=== PATIENT | female | born 1980 | race Caucasian/White ===

== ENCOUNTER 2020-06-06 09:01 | Outpatient (CLI) | payer BC, SELFPAY ==
--- NOTE | ~2020-06-06 | MM_ITS ---
EXAMINATION: MM screening [facility] BI w tank HISTORY: Screening mammogram TECHNIQUE: Craniocaudal and mediolateral oblique 3-D tomosynthesis images were obtained and synthetic 2-D images were generated. CAD analysis was submitted and interpreted. COMPARISON: 04/27/2019 BREAST PARENCHYMAL COMPOSITION: The breasts are heterogeneously dense, which may obscure small masses . FINDINGS: RIGHT BREAST: There is no evidence of suspicious mass, calcification, or architectural distortion to suggest malignancy. There has been no significant interval change. LEFT BREAST: A possible mass is present in the posterior third of the lower inner breast best appreci ated 9.5 cm from the nipple on craniocaudal tomosynthesis image 16/71. IMPRESSION: 1. Possible left breast mass. 2. Additional mammographic views and possible breast ultrasound are recommended. BI-RADS Category 0: Incomplete: Needs additional imaging evaluation. Reviewed, dictated and finalized at location A. IMPRESSION: 1. Possible left breast mass. 2. Additional mammographic views and possible breast ultrasound are recommended . BI-RADS Category 0: Incomplete: Needs additional imaging evaluation.
== END 2020-06-06 09:02 | disposition home or self-care (01) ==
LOC: ANHIMG 09:05
PROVIDERS: PCP Family Medicine; Visit Provider Obstetrics & Gynecology
DX: Z12.31 Encounter for screening mammogram for malignant neoplasm of breast (principal); R92.8 Other abnormal and inconclusive findings on diagnostic imaging of breast
CPT/HCPCS: 77063; 77067

== ENCOUNTER 2020-10-04 12:12 | Outpatient (CLI) | payer BC, SELFPAY ==
--- NOTE | ~2020-10-04 | MM_ITS ---
Corrected Report Added US breast LT limited to the examinations. -BJO - EXAMINATION: MM diagnostic [facility] LT w tank, US breast LT limited HISTORY: Possible left breast mass on screening mammogram TECHNIQUE: Additional 3-D tomosynthesis images of the left breast were performed and synthetic 2-D images were generated. CAD analysis was submitted and interpreted. High resolution limited left breast ultrasound was performed. COMPARISON: 06/06/2020, 04/27/2019 FINDINGS: MAMMOGRAPHIC FINDINGS: No persistent left breast mass is identified with spot compression. There is no suspicious calcification or architectural distortion. ULTRASOUND: There is no evidence of focal abnormal solid or cystic lesion in the vicinity of the mammographic finding in question. IMPRESSION: 1. No mammographic or sonographic evidence of malignancy. 2. Recommend routine screening mammography in one year. BI-RADS Category 1: Negative Reviewed, dictated and finalized at location A. EXAMINER MTDD
== END 2020-10-04 12:13 | disposition home or self-care (01) ==
LOC: ANHIMG 12:16
PROVIDERS: PCP Family Medicine; Visit Provider Obstetrics & Gynecology
DX: R92.8 Other abnormal and inconclusive findings on diagnostic imaging of breast (principal)
CPT/HCPCS: 76642; 77061; 77065; G0279

== ENCOUNTER 2021-09-16 08:11 | Outpatient (CLI) | payer BC, SELFPAY ==
--- NOTE | ~2021-09-16 | MM_ITS ---
EXAMINATION: MM screening [facility] BI w tank HISTORY: Screening TECHNIQUE: Craniocaudal and mediolateral oblique 3-D tomosynthesis images were obtained and synthetic 2-D images were generated. CAD analysis was submitted and interpreted. COMPARISON: Comparison to multiple prior studies sequentially, with oldest reviewed study dated 04/27. BREAST PARENCHYMAL COMPOSITION: The breasts are heterogeneously dense, which may obscure small masses . FINDINGS: There is no evidence of suspicious mass, calcification, or architectural distortion to sugg est malignancy in either breast. There has been no suspicious interval change. IMPRESSION: 1. No mammographic evidence of malignancy. 2. Recommend routine screening mammography in one year. BI-RADS Category 1: Negative Reviewed, dictated and finalized at location A. NESS OFFICE TECHNICIAN
== END 2021-09-16 08:12 | disposition home or self-care (01) ==
LOC: ANHIMG 08:15
PROVIDERS: PCP Family Medicine; Visit Provider Obstetrics & Gynecology
DX: Z12.31 Encounter for screening mammogram for malignant neoplasm of breast (principal)
CPT/HCPCS: 77063; 77067

== ENCOUNTER 2021-12-21 08:19 | Emergency (ER) | payer BC, SELFPAY ==
--- NOTE | ~2021-12-21 | CT_ITS ---
EXAMINATION: CT abdomen pelvis w con DATE: 12/21/2021 11:28 INDICATION: Lower abdominal pain. Constipation. Difficulty urinating. TECHNIQUE: Computed tomography (CT) of the abdomen and pelvis was performed with 100 CC Omnipaque 300 intravenous contrast. Automated exposure control and iterative reconstruction technique were employe d. Exam dose: 464.43 mGy-cm total exam DLP. COMPARISON: 04/10/2018 right upper quadrant abdominal ultrasound FINDINGS: Left lower lobe calcified pulmonary granuloma. No infiltrate or consolidation at the lung b ases. Normal heart size. No pericardial or pleural effusion. The liver, gallbladder, bile ducts, spleen, pancreas and pancreatic duct appear normal. Normal morphology of the adrenal glands. There is a very small cyst of each kidney. No urinary tract calculus or hydroureteronephrosis. Normal caliber of the abdominal aorta. Small shotty mesenteric and right lower quadrant lymph nodes. No intraperitoneal or retroperitoneal or pelvic mass lesion or adenopathy or ascites. There is a 3.3 cm long 2 mm wide curvilinear radiopaque density extending from the left adnexal area anteromedially into the mid lower abdomen 2.3 cm right ovarian cyst. 1.3 cm left ovarian cyst. The uterus and adnexal areas are otherwise unrem arkable. The urinary bladder is unremarkable. Prominent amount fecal material in the rectum and rectosigmoid area. No bowel obstruction or intraper itoneal free air. Small fat-containing umbilical hernia. Included skeletal structures are unremarkable. IMPRESSION: Curvilinear 2 mm wide radiopaque foreign body identified in the lower left mid abdomen Prominent amount fecal material in the rectum and rectosigmoid area Small cyst of each kidney Bilateral ovarian cysts Reviewed, dictated and finalized at Location A. Reviewed, dictated and finalized at location A. IMPRESSION: Curvilinear 2 mm wide radiopaque foreign body identified in the low er left mid abdomen Prominent amount fecal material in the rectum and rectosigmoid area Small cyst of each kidney Bilateral ovarian cysts
[2021-12-21 08:29] VITALS: BP 153/87; PULSE 99; RESP 18; TEMP 36.4; O2SAT 100
--- NOTE | 2021-12-21 09:19 | ED.ABDPAIN ---
HPI - Abdominal Pain General Chief Complaint: Abdominal Pain Stated Complaint: bowel issues Time Seen by Provider: 12/21/21 09:12 History of Present Illness HPI narrative: 41-year-old female presents to the emergency room for evaluation of lower abdominal pain and constipation for 3 days. Patient states that she has attempted multiple stool softeners without relief, and is experiencing significant amount of rectal pain. Patient denies any hemorrhoids. Patient is also complaining of urinary retention, stating the only time she can urinate is when she sits in a warm bath for 10 to 15 minutes. Patient also reports intermittent nausea. Patient denies flatulence. Patient denies any abdominal surgeries. Related Data Home Medications Medication Instructions Recorded Confirmed multivitamin 1 tablet PO DAILY 10/26/20 11/01/21 Allergies Allergy/AdvReac Type Severity Reaction Status Date / Time No Known Allergies Allergy Verified 12/21/21 09:20 fluticasone AdvReac Unknown lower body Verified 11/01/21 15:18 pain Review of Systems Review of Systems: CONSTITUTIONAL: Denies fever, chills, or sweats. EYES: Denies visual changes, redness, or discharge. ENT: Denies rhinorrhea, congestion, sore throat, or otalgia. CARDIOVASCULAR: Denies chest pain, palpitations, or edema. RESPIRATORY: Denies cough or dyspnea. GASTROINTESTINAL: Reports lower abdominal pain, nausea, rectal pain GENITOURINARY: Reports urinary retention. SKIN: Denies rash or itching. MUSCULOSKELETAL: Denies back pain, joint pain, or myalgia. NEUROLOGIC: Denies headache, numbness, dizziness, or weakness. PSYCHIATRIC: Denies anxiety or depression. [facility] Past Medical History Medical History Abnormal glandular Papanicolaou smear of cervix Chronic pain of right knee Family History Family History Mother Diabetes mellitus Other Family history of arthritis Social History Social History Smoking status: Former smoker Tobacco type: cigarettes Smoking end date: 11/08/20 Alcohol intake: current Exam Narrative: GENERAL: Well-appearing, well-nourished, and in no acute distress. HEAD: Normocephalic, atraumatic. EYES: PERRLA and EOMI. CHEST: Clear to auscultation. No respiratory distress. No wheezes rales or rhonchi HEART: Regular rate and rhythm. No murmur heard. Normal peripheral pulses. ABDOMEN: Soft, lower abdominal tenderness, nondistended, hypo-active bowel sounds. EXTREMITIES: Normal range of motion. No edema. SKIN: Warm, dry, no rash. NEURO: No focal deficits. Alert and oriented x3. PSYCH: Normal mood and affect. Course Vital Signs Vital signs: Vital Signs Temperature 36.4 C 12/21/21 08:29 Pulse Rate 99 12/21/21 08:29 Respiratory Rate 18 12/21/21 08:29 Blood Pressure 153/87 H 12/21/21 08:29 Pulse Oximetry 100 12/21/21 08:29 Temperature 36.4 C 12/21/21 08:29 Pulse Rate 71 12/21/21 11:09 Respiratory Rate 18 12/21/21 11:09 Blood Pressure 128/68 12/21/21 11:09 Pulse Oximetry 100 12/21/21 11:09 MDM - Abdominal Pain MDM Narrative Medical decision making narrative: 41-year-old female presents the emergency room with complaints of generalized abdominal pain, and constipation. Patient states that she recently started taking a new [id number] supplement, has been experiencing constipation for 3 days. CBC and CMP were unremarkable. CT scan shows large amount of retained stool, as well as a foreign body in the left lower abdomen. Patient states that she lost an IUD approximately 4 to 5 years ago, and this is likely where migrated to. Encourage patient to get an [id number] fleets enema. Differential Diagnosis Differential diagnosis: Likely abdominal pain Medical Records Attestation: I reviewed the patient's medical records. Lab Data
[2021-12-21] MEDS: SODIUM CHLORIDE 0.9% IV 1,000 ML 999 ML IV CONT (09:56)
[2021-12-21 10:15] LABS: Basophils Absolute Auto 0.1 K/mm3 (0.0-0.1); Basophils Percent Auto 0.9 % (0.2-1.2); Eosinophils Percent Auto 0.4 % (0-4.4); Hematocrit 39.2 % (37.0-47.0); Hemoglobin 12.8 g/dL (12.0-15.0); Immature Granulocyte Absolute 0.03 K/mm3 (0.00-0.031); Immature Granulocyte Percent A 0.4 % (0-0.5); Lymphocytes Absolute Auto 1.31 K/mm3 (0.9-3.2); Lymphocytes Percent Auto 16.2 % (18.3-44.2); Mean Corpuscular HGB Conc 32.7 g/dl (32-36); Mean Corpuscular Hemoglobin 29.6 pg (26-34); Mean Corpuscular Volume 90.7 fl (80-100); Mean Platelet Volume 10.3 fl (7.4-10.4); Monocytes Absolute Auto 0.4 K/mm3 (0.1-0.6); Monocytes Percent Auto 4.6 % (2.6-8.5); Neutrophils Absolute Auto 6.3 K/mm3 (1.3-6.7); Neutrophils Percent Auto 77.5 % (45.5-73.1); Platelet Count Result 265 k/mm3 (150-375); Red Blood Count 4.32 M/mm3 (4.2-5.4); Red Cell Distribution Width 11.8 % (11.5-14.5); White Blood Count 8.1 K/mm3 (4.5-10.0)
[2021-12-21 10:27] LABS: Alanine Aminotransferase 27 U/L (6-35); Albumin Level 4.7 g/dL (3.5-5.1); Alkaline Phosphatase 89 U/L (38-126); Anion Gap 13 mmol/L (8-16); Aspartate Amino Transferase 30 U/L (14-36); Bilirubin,Total 0.8 mg/dL (0.2-1.3); Blood Urea Nitrogen 15 mg/dL (7-17); Calcium 8.6 mg/dL (8.4-10.2); Carbon Dioxide 16 mmol/L (22-30); Chloride 109 mmol/L (98-107); Estimated CRCL calculation 77 ml/min; Estimated Glomerular Filt Rate > 60; Glucose 69 mg/dL (65-110); Sodium 138 mmol/L (137-145)
[2021-12-21 11:09] VITALS: BP 128/68; PULSE 71; RESP 18; O2SAT 100
[2021-12-21 11:54] LABS: Add Urine Microscopic? YES; Appearance Urine Cloudy (Clear); Bilirubin Urine Negative (Negative); Blood Urine 3+ (Negative); Color Urine Amber (Yellow); Glucose Urine UA Negative (Negative); Ketones Urine 2+ mg/dL (Negative); Leukocyte Esterase Ur Negative LEU/UL (Negative); Nitrate Urine Negative (Negative); Protein Urine 1+ mg/dL (Negative); Specific Grav Ur 1.025 (1.001-1.035); Urobilinogen Urine 0.2 mg/dL (<2.0)
[2021-12-21 12:01] LABS: Amorphous Sediment Urine Few; Mucus Urine Few /lpf; RBC Urine >75 /hpf (0-2); WBC Urine 21-30 /hpf
[2021-12-21 12:46] VITALS: BP 126/74; PULSE 72; RESP 18; O2SAT 100
== END 2021-12-21 12:30 | disposition home or self-care (01) ==
PROVIDERS: Emergency Provider Nurse Practitioner Family; PCP Family Medicine
DX: K59.00 Constipation, unspecified (principal); Z87.891 Personal history of nicotine dependence; N28.1 Cyst of kidney, acquired; N83.202 Unspecified ovarian cyst, left side; N83.201 Unspecified ovarian cyst, right side; M79.5 Residual foreign body in soft tissue
CPT/HCPCS: 36415; 74177; 80053; 81001; 81025; 85025; 87086; 96360; 99284; J7030; Q9967

== ENCOUNTER 2021-12-27 01:23 | Day surgery (SDC) | payer BC, SELFPAY ==
[2021-12-25 10:52] VITALS: BMI 25.4
--- NOTE | 2021-12-25 10:59 | PC.NURSE ---
Report to the Outpatient Waiting Room, entrance under the green pavilion located off [facility], at time 0815 on date 12/27/21. OR Time: 1015. - You and your visitor will be asked a series of questions to screen for COVID 19 for your protection. - Only one visitor is allowed at this time. - The patient visitor is requested to leave or wait in car when not with patient. - A mask is required within the hospital. Patients may have clear liquids (water, carbonated beverages, clear teas, apple juice) until 3 hours prior to surgery with a maximum of 20 ounces. - No food from midnight until time of surgery - Infants may have breast milk until 4 hours before surgery, formula 6 hours prior to surgery. - Children will be allowed to drink immediately following surgery. If applicable, please bring a bottle or sippy cup to assist with drinking. Juice, water, soda, and popsicles are readily available. For infants on formula, please bring formula the day of surgery. Pacifiers are allowed. Take the following medications with a SIP of water the morning of surgery: XANAX (IF NEEDED) Medications to discontinue per physician: VITAMINS/SUPPLEMENTS Date to take last dose: NO MORE UNTIL AFTER SURGERY Please no make-up, nail indonesian, hairspray, perfume, deodorant, or body powder the day of surgery. No jewelry (including any body piercings) or valuables the day of surgery, leave them at home. Please take a shower or bath the night before, or the morning of, surgery with an antibacterial soap. Wear comfortable, loose fitting clothing. - Jewelry must be removed prior to entering the operating room. Rings and piercings that are not removed may be cut off. - The hospital will not accept responsibility for valuables. - Please leave all valuables, including medications, at home the day of surgery. If you are going home after surgery, a licensed [place] driver must drive you home. - NO public transportation without another adult. - We recommend that an adult stay with you for 24 hours following discharge. - We also recommend that you do not drive, make important decision, drink alcoholic beverages, or take any drugs that were not prescribed by your health care provider for at least 24 hours after your discharge time. Follow any additional instructions given to you from your surgeon. If you or anyone in your household have experienced Covid symptoms in the past week, please notify your surgeon or the nurse liaison at the phone number below for possible testing. Telephone instructions given to MARISELA ARIAS and asked if any additional questions and then verbalized understanding. Patient advised to call surgeon office or pre surgery nurse liaison [phone] if any additional questions.
--- NOTE | 2021-12-25 17:14 | PM.IMHP ---
H&P: HPI History of Present Illness Date/Time: 12/25/21 17:14 41-year-old female here to have an IUD removed from the abdomen. This apparently has been there for quite some time she wonder when an ultrasound complaining of lower abdominal pain and CT showed her IUD from many years ago in the left lower quadrant. She will undergo laparoscopy with removal. Risks and benefits reviewed. Chief Complaint: lost IUD Review of Systems Review of Systems: All systems reviewed & are unremarkable except as noted in HPI and below PMFSH Past Medical History Medical History Abnormal glandular Papanicolaou smear of cervix Chronic pain of right knee Family History Family History Mother Diabetes mellitus Other Family history of arthritis Social History Social History Smoking packs per day: 0.5 Smoking cigarettes per day: 10.0 Years smoked: 8 Smoking pack-years: 4.00 Smoking status: Former smoker Tobacco type: cigarettes Smoking end date: 11/27/20 Alcohol intake: current Drinks per week: 4 Substance use: never Substance use type: does not use Living arrangements: with family Spiritual care concerns: No Meds Home Medications and Allergies Home Medications Medication Instructions Recorded Confirmed Type multivitamin 1 tablet PO DAILY 10/26/20 12/25/21 History alprazolam 0.25 mg tablet 0.25 mg PO QHS PRN #30 tablet 09/25/21 12/25/21 Rx betamethasone dipropionate 0.05 % 1 applic TOPICAL BID PRN #45 g 11/01/21 12/25/21 Rx topical cream nitrofurantoin monohyd/m-cryst 100 mg PO Q12H 7 Days #14 cap 12/21/21 12/25/21 Rx [Macrobid] Allergies Allergy/AdvReac Type Severity Reaction Status Date / Time No Known Allergies Allergy Verified 12/25/21 10:50 Exam Const: General: no acute distress Eyes: General: appearance normal, both eyes and all related structures Neck: Neck: supple and no JVD Thyroid: thyroid normal Resp: Effort & Inspection: normal respiratory effort Auscultation: clear to auscultation bilaterally Cardio: Rate: regular rate Rhythm: regular rhythm GI: Inspection: non-distended GI Palp: Yes Soft to palpation, No Tenderness to palpation present (GI) and No Guarding due to palpation present (GI) Auscultation: normal bowel sounds : General: Yes bladder normal to palpation External Female Exam: normal external appearance Speculum Exam - Vagina: normal vaginal discharge and No vaginal bleeding Speculum Exam - Cervix: nontender Bimanual exam- vagina & uterus: bladder normal to palpation and No Cervical tenderness present OB/external & speculum: No vaginal bleeding Skin: General skin exam: no rashes or lesions noted Extrem: General: normal to inspection and no edema Psych: Mental Status: mental status grossly normal Affect: normal affect Assessment and Plan Additional Plan Impression: Ectopic IUD Plan: Laparoscopic removal of IUD
--- NOTE | 2021-12-26 13:51 | P.PNAN_ITS ---
Anes - Initial Pre Proc Eval Procedure: Operation Date: 12/27/21 10:15 Proposed Procedures p Laparoscopic Removal of Intrauterine Device - Carter Manrique MD Date/Time: 12/26/21 13:51 Surgeon: Carter Manrique MD Pre Op Diagnosis: ectopic iud Patient Data Age: 41 Gender: F Height: 1.63 m Weight: 67.2 kg Allergies Allergy/AdvReac Type Severity Reaction Status Date / Time No Known Allergies Allergy Verified 12/27/21 09:07 Home Medications Medication Instructions Recorded Confirmed Type multivitamin 1 tablet PO DAILY 10/26/20 12/27/21 History alprazolam 0.25 mg tablet 0.25 mg PO QHS PRN #30 tablet 09/25/21 12/27/21 Rx betamethasone dipropionate 0.05 % 1 applic TOPICAL BID PRN #45 g 11/01/21 12/27/21 Rx topical cream nitrofurantoin monohyd/m-cryst 100 mg PO Q12H 7 Days #14 cap 12/21/21 12/27/21 Rx [Macrobid] hydrocodone-acetaminophen 1 tablet PO Q4H PRN #30 tablet 12/27/21 Rx Patient hx anesthesia problems: none Family hx anesthesia problems: none Results Review: All pre-operative results and documents have been reviewed as part of the pre-operative evaluation. [facility] Past Medical History Medical History Abnormal glandular Papanicolaou smear of cervix Chronic pain of right knee Family History Family History Mother Diabetes mellitus Other Family history of arthritis Social History Social History Smoking packs per day: 0.5 Smoking cigarettes per day: 10.0 Years smoked: 8 Smoking pack-years: 4.00 Smoking status: Former smoker Tobacco type: cigarettes Smoking end date: 11/27/20 Alcohol intake: current Drinks per week: 4 Substance use: never Substance use type: does not use Living arrangements: with family Spiritual care concerns: No Anes - Eval Final PreProcedure Day of Procedure 12/26/21 13:51 Patient weight: normal Heart: regular rate and rhythm Lungs: clear to auscultation and normal air movement Airway: Mallampati scale class II Neurological: alert and oriented Last oral intake: >/= 8 hours ASA classification: II Emergent: no Anesthetic plan: proceed Anesthesia type and monitoring: general ETT Results Review: All pre-operative results and documents have been reviewed as part of the pre-operative evaluation. Informed Consent: The patient's anesthetic plan and its attendant risks and benefits were discussed with the patient/family/POA. Questions were solicited and answers provided to the satisfaction of the patient/family/POA.
[2021-12-27] VITALS (7 sets, daily range): BP systolic 112–136; BP diastolic 61–75; PULSE 62–91; RESP 12–20; TEMP 36.1–36.3; O2SAT 98–100
--- NOTE | 2021-12-27 07:12 | WPDHPUPDATE1 ---
History and Physical Update Update Date/Time: 12/27/21 07:12 History and Physical has been reviewed, including an updated exam of the patient. There are NO changes in the patient's condition. Risks, benefits, and alternatives have been discussed and questions answered. Patient agrees to proceed with procedure.
[2021-12-27] MEDS: LACTATED RINGERS 1,000 ML 30 ML IV CONT (09:28)
[2021-12-27] MEDS: ACETAMINOPHEN 500 MG TABLET 1000 MG PO (09:36)
[2021-12-27] MEDS: KETOROLAC 15 MG/ML VIAL (*BKC) IV PUSH (09:36)
--- NOTE | 2021-12-27 10:46 | W.PM.PROC2 ---
Procedure Note - Detailed Date of Procedure 12/27/21 Pre-op Diagnosis ectopic iud Post-op Diagnosis Other (Endometriosis) Procedure Performed Laparoscopic removal of for ectopic IUD/laparoscopic destruction of endometriosis Surgeon Carter Manrique MD Anesthesia General Indications This is a 41-year-old female who had an IUD seen on imaging she was having some lower left abdominal pain. Findings Normal-appearing right ovary and tube normal-appearing uterus. Left ovary with a small endometrial implant. An ectopic IUD seen in the left lower quadrant. Small amount of adhesions from the colon to the left lateral sidewall Description of Procedure The patient is prepped draped in normal sterile fashion placed in the dorsal lithotomy position. Under excellent general endotracheal anesthesia weighted speculum placed in posterior fornix vagina. Anterior cervix grasped with single-tooth tenaculum the Gamez's cannula inserted attached to the single-tooth to be used later for uterine manipulation. Bladder was emptied of clear urine. The weighted speculum was removed. Gloves were changed An infraumbilical incision made the Veress needle passed in the abdomen. Abdomen filled with CO2 gas to 15mm Hg. The 5mm trocar advanced under direct visualization assuring no injury. Patient placed in Trendelenburg and a suprapubic incision made. The 5mm trocar advanced under direct visualization assuring no injury. The a above findings were seen. The appendix liver and gallbladder appeared within limits. The ectopic IUD was easily removed through the lower site. Irrigation undertaken small area of endometriosis was seen on the left ovary and this was cauterized at 45 w per 2nd. Some adhesions were seen from colon to the left lateral sidewall. These were sharply dissected freed the colon. No other abnormalities were seen. The lower site removed. The gas removed from the abdomen. The upper site removed. The incisions closed with 4 Monocryl and glue. Patient was awakened went to recovery in satisfactory condition. All sponge, needle, instrument counts were correct. There were no immediate complications Estimated Blood Loss 5 Drains No Packing No Pathology None sent Complications No immediate complications Condition Stable Disposition PACU
== END 2021-12-27 12:06 | disposition home or self-care (01) ==
PROVIDERS: PCP Family Medicine; Visit Provider Obstetrics & Gynecology
PROC: 0UDB8ZZ Extraction of Endometrium, Via Natural or Artificial Opening Endoscopic (ICD-10-PCS; CPT 58558; principal; 2021-12-27 10:15)
DX: T83.32XA Displacement of intrauterine contraceptive device, initial encounter (principal); N80.1 Endometriosis of ovary; Z87.891 Personal history of nicotine dependence; K66.0 Peritoneal adhesions (postprocedural) (postinfection)
CPT/HCPCS: 58662; 49329; 36415; 86850; 86900; 86901; A9270; J0330; J1100; J1885; J2250; J2405; J2704; J3010; J7030; J7120

== ENCOUNTER 2023-01-27 07:17 | Outpatient (CLI) | payer BC, SELFPAY ==
--- NOTE | ~2023-01-27 | MM_ITS ---
EXAMINATION: MM screening [facility] BI w tank HISTORY: Screening mammogram TECHNIQUE: Craniocaudal and mediolateral oblique 3-D tomosynthesis images were obtained and synthetic 2-D images were generated. CAD analysis was submitted and interpreted. COMPARISON: September 16, 2021, October 04, 2020, June 06, 2020 bilateral screening mammogram [facility] [place] BREAST PARENCHYMAL COMPOSITION: The breasts are heterogeneously dense, which may obscure small masses . FINDINGS: Right breast: There is no evidence of suspicious mass, calcification, or architectural distortion to suggest malignancy. There has been no suspicious interval change. Left breast: New approximately 7 x 8 mm mass is suggested in the mid to deep central left breast on M LO view (MLO Tomosynthesis image 43/74). Diagnostic left mammogram is recommended, with ultrasound if required. IMPRESSION: 1. Possible new left breast mass 2. Diagnostic left mammogram is recommended, with ultrasound if required BI-RADS Category 0: Incomplete: Needs additional imaging evaluation. Reviewed, dictated and finalized at location A.
== END 2023-01-27 07:18 | disposition home or self-care (01) ==
LOC: ANHIMG 07:20
PROVIDERS: PCP Family Medicine; Visit Provider Obstetrics & Gynecology
DX: Z12.31 Encounter for screening mammogram for malignant neoplasm of breast (principal); R92.8 Other abnormal and inconclusive findings on diagnostic imaging of breast
CPT/HCPCS: 77063; 77067

== ENCOUNTER 2023-02-26 12:47 | Outpatient (CLI) | payer BC, SELFPAY ==
--- NOTE | ~2023-02-26 | MMUS_ITS ---
EXAMINATION: MM diagnostic [facility] LT w tank, US breast LT complete HISTORY: Follow-up left breast asymmetries TECHNIQUE: Additional 3-D tomosynthesis images of the left breast were performed and synthetic 2-D im ages were generated. CAD analysis was submitted and interpreted. High resolution complete left breast ultrasound was performed. COMPARISON: Comparison to multiple prior studies sequentially, with oldest reviewed study dated 04/27. BREAST PARENCHYMAL COMPOSITION: The breasts are heterogeneously dense, which may obscure small masses FINDINGS: MAMMOGRAPHIC FINDINGS: There are multiple small masses scattered throughout the left breast which are obscured by fibrogland ular tissue. There are no suspicious calcifications or architectural distortion. ULTRASOUND: Complete left breast ultrasound including all 4 quadrants in the subareolar locations: At 1 o'clock, 7 cm from the nipple there is an oval hypoechoic mass with circumscribed margins, parallel orientatio n, no posterior features and no internal vascularity measuring 5 x 4 x 3 mm, likely benign. At 2:00, 7 cm from the nipple, there is a 3 mm cyst. At 3:00, 5 cm from the nipple there is a slightly irregul ar shaped hypoechoic mass measuring 7 x 4 x 3 mm. Parallel orientation, no significant posterior feat ures. At 10:00, 4 cm from the nipple there is a 7 mm cyst. IMPRESSION: 1. Irregular shaped hypoechoic mass of the left breast at 3:00, 5 cm from the nipple measuring 7 mm. Ultrasound-guided left breast biopsy recommended. 2. Multiple additional likely benign masses are seen in the left breast. Six-month follow-up left geri ast ultrasound recommended. BI-RADS category 4, suspicious findings. Reviewed, dictated and finalized at location A. IMPRESSION: 1. Irregular shaped hypoechoic mass of the left breast at 3:00, 5 cm from the n ipple measuring 7 mm. Ultrasound-guided left breast biopsy recommended. 2. Multiple additional likely benign masses are seen in the left breast. Six-mo nth follow-up left breast ultrasound recommended. BI-RADS category 4, suspicious findings.
== END 2023-02-26 12:48 | disposition home or self-care (01) ==
PROVIDERS: PCP Family Medicine; Visit Provider Obstetrics & Gynecology
DX: R92.8 Other abnormal and inconclusive findings on diagnostic imaging of breast (principal)
CPT/HCPCS: 76641; 77061; 77065; G0279

== ENCOUNTER 2023-03-30 09:32 | Outpatient (CLI) | payer BC, SELFPAY ==
--- NOTE | ~2023-03-30 | US_ITS ---
US breast LT limited DATE: 03/30/2023 10:19 INDICATION: Patient presented for biopsy of possible left breast mass reported on 01/27/[address] ultrasound examination TECHNIQUE: Real-time imaging and color flow imaging at previously reported suspicious finding at 3:00 5 cm from nipple COMPARISON: 01/27/2023 bilateral screening mammogram 02/26/2023 diagnostic left mammogram and complete left breast ultrasound FINDINGS: At 3:00 5 cm from the nipple there is probable multi septated cyst with through transmissio n posterior enhancement, measuring up to approximately 3.8 x 4.7 mm dimension. There is no internal v ascularity and no suspicious shadowing. The appearance is benign and not significant changed compared to 02/26/2023. IMPRESSION: Benign finding Recommendation: Routine annual mammographic screening BI-RADS Category 2: Benign Reviewed, dictated and finalized at Location A. Reviewed, dictated and finalized at location A.
== END 2023-03-30 09:33 | disposition home or self-care (01) ==
PROVIDERS: PCP Family Medicine; Visit Provider Surgery
DX: N63.20 Unspecified lump in the left breast, unspecified quadrant (principal)
CPT/HCPCS: 76642

== ENCOUNTER 2024-04-12 14:38 | Outpatient (CLI) | payer BC, SELFPAY ==
--- NOTE | ~2024-04-12 | MM_ITS ---
EXAMINATION: MM screening [facility] w tank HISTORY: Screening TECHNIQUE: Craniocaudal and mediolateral oblique 3-D tomosynthesis images were obtained and synthetic 2-D images were generated. CAD analysis was submitted and interpreted. COMPARISON: Comparison to multiple prior studies sequentially, with oldest reviewed study dated 04/27. BREAST PARENCHYMAL COMPOSITION: Dense: The breasts are heterogeneously dense, which may obscure small masses FINDINGS: There is no evidence of suspicious mass, calcification, or architectural distortion to sugg est malignancy in either breast. There has been no suspicious interval change. IMPRESSION: 1. No mammographic evidence of malignancy. 2. Recommend routine screening mammography in one year. BI-RADS Category 1: Negative Reviewed, dictated and finalized at location B.
== END 2024-04-12 14:39 | disposition home or self-care (01) ==
LOC: ANHIMG 14:39
PROVIDERS: PCP Family Medicine; Visit Provider Obstetrics & Gynecology
DX: Z12.31 Encounter for screening mammogram for malignant neoplasm of breast (principal)
CPT/HCPCS: 77063; 77067

== ENCOUNTER 2024-06-30 01:10 | Day surgery (SDC) | payer BC, SELFPAY ==
[2024-06-20 10:36] VITALS: BMI 25.7
[2024-06-30 08:41] VITALS: BP 125/67; PULSE 90; RESP 20; TEMP 36.1; O2SAT 100; BMI 26.1
[2024-06-30 08:47] LABS: BEDSIDEPREGUCG Negative (Negative)
[2024-06-30] MEDS: LACTATED RINGERS 1,000 ML 150 ML IV CONT (08:52)
--- NOTE | 2024-06-30 09:06 | P.PNAN_ITS ---
Anes - Initial Pre Proc Eval Procedure: Operation Date: 06/30/24 10:00 Proposed Procedures p Screening Colonoscopy - Rj Carpenter DO Date/Time: 06/30/24 09:06 Surgeon: Rj Carpenter DO Pre Op Diagnosis: Screening for malignant neoplasm of colon Patient Data Age: 43 Gender: F Height: 1.63 m Weight: 69 kg Last Vital Signs Temp 97 F L 06/30/24 08:41 Pulse 90 06/30/24 08:41 Resp 20 06/30/24 08:41 BP 125/67 06/30/24 08:41 Pulse Ox 100 06/30/24 08:41 O2 Del Method Room Air 06/30/24 08:41 Allergies Allergy/AdvReac Type Severity Reaction Status Date / Time No Known Allergies Allergy Verified 06/30/24 08:40 Home Medications Medication Instructions Recorded Confirmed Type multivitamin 1 tablet PO DAILY 10/26/20 06/30/24 History betamethasone dipropionate 0.05 % 1 applic topical BID PRN rash #45 11/01/21 06/30/24 Rx topical cream grams alprazolam 0.25 mg tablet 0.25 mg PO QHS PRN anxiety #30 tabs 02/18/23 06/30/24 Rx Laboratory Tests 06/30/24 08:44 POC Urine HCG, Qual Negative (Negative) Patient hx anesthesia problems: none Family hx anesthesia problems: none Results Review: All pre-operative results and documents have been reviewed as part of the pre- operative evaluation. [facility] Past Medical History Medical History Abnormal glandular Papanicolaou smear of cervix Chronic pain of right knee Nicotine dependence, cigarettes, uncomplicated Surgical History Surgical History History of hysteroscopy Family History Family History Mother Diabetes mellitus Other Family history of arthritis Social History Social History Smoking packs per day: 0.5 Smoking cigarettes per day: 10.0 Years smoked: 8 Smoking pack-years: 4.00 Smoking status: Former smoker Tobacco type: cigarettes Smoking end date: 11/27/20 Alcohol intake: current Drinks per week: 6 Substance use: never Substance use type: does not use Lack of Transportation: No Lack of Food: Never True Current Housing: I Have Housing Concerned About Future Housing: No Difficulty Paying Gas/Electric Bills: No Difficulty Paying for Meds: No Currently Unemployed: No Education: High School Diploma/GED Difficulty w/ Childcare or Family Care: No Living arrangements: with family Spiritual care concerns: No Anes - Eval Final PreProcedure Day of Procedure 06/30/24 09:06 Patient weight: normal Heart: regular rate and rhythm Lungs: clear to auscultation Airway: Mallampati scale class II Neurological: alert and oriented Last oral intake: >/= 8 hours ASA classification: II Emergent: no Anesthetic plan: proceed Anesthesia type and monitoring: general GIVS and standard monitoring Results Review: All pre-operative results and documents have been reviewed as part of the pre- operative evaluation. Ex smoker, quit approx 2021. Informed Consent: The patient's anesthetic plan and its attendant risks and benefits were discussed with the patient/family/POA. Questions were solicited and answers provided to the satisfaction of the patient/family/POA.
--- NOTE | 2024-06-30 09:14 | PM.IMHP ---
H&P: HPI History of Present Illness Date/Time: 06/30/24 09:14 Chief Complaint: screening for colorectal cancer Narrative: this is a 43-year-old woman who presents for her 1st colonoscopy. She denies any hematochezia or melena. She has an aunt and grandmother that had colon cancer but no first-degree relatives. Review of Systems Review of Systems: All systems reviewed & are unremarkable except as noted in HPI and below Constitutional: Constitutional: Denies chills, Denies fever(s), Denies headache(s) and Denies weight loss Eyes: Eyes: Denies change in vision ENT: Denies dizziness, Denies headache(s), Denies neck mass and Denies throat swelling Cardiovascular: Cardiovascular: Denies chest pain, Denies lightheadedness and Denies dyspnea Respiratory: Respiratory: Denies cough, Denies dyspnea and Denies wheezing Gastrointestinal: Gastrointestinal: Denies abdominal pain, Denies change in bowel habits, Denies nausea and Denies vomiting Genitourinary: Genitourinary: Denies hematuria and Denies dysuria Musculoskeletal: Musculoskeletal: Reports as per HPI Integumentary/Breasts: Skin/Breast: Reports as per HPI Neurologic: Denies dizziness and Denies headache(s) Allergic/Immunologic: Allergic/Immunologic: Denies throat swelling and Denies wheezing PMFSH Past Medical History Medical History Abnormal glandular Papanicolaou smear of cervix Chronic pain of right knee Nicotine dependence, cigarettes, uncomplicated Surgical History Surgical History History of hysteroscopy Family History Family History Mother Diabetes mellitus Other Family history of arthritis Social History Social History Smoking packs per day: 0.5 Smoking cigarettes per day: 10.0 Years smoked: 8 Smoking pack-years: 4.00 Smoking status: Former smoker Tobacco type: cigarettes Smoking end date: 11/27/20 Alcohol intake: current Drinks per week: 6 Substance use: never Substance use type: does not use Lack of Transportation: No Lack of Food: Never True Current Housing: I Have Housing Concerned About Future Housing: No Difficulty Paying Gas/Electric Bills: No Difficulty Paying for Meds: No Currently Unemployed: No Education: High School Diploma/GED Difficulty w/ Childcare or Family Care: No Living arrangements: with family Spiritual care concerns: No Meds Home Medications and Allergies Home Medications Medication Instructions Recorded Confirmed Type multivitamin 1 tablet PO DAILY 10/26/20 06/30/24 History betamethasone dipropionate 0.05 % 1 applic topical BID PRN rash #45 11/01/21 06/30/24 Rx topical cream grams alprazolam 0.25 mg tablet 0.25 mg PO QHS PRN anxiety #30 tabs 02/18/23 06/30/24 Rx Allergies Allergy/AdvReac Type Severity Reaction Status Date / Time No Known Allergies Allergy Verified 06/30/24 08:40 Vital Signs Vital Signs - 24 hr 06/30/24 08:41 Temperature 97 F L Pulse Rate 90 Respiratory Rate 20 Blood Pressure 125/67 Pulse Oximetry 100 Oxygen Delivery Room Air Exam Const: General: no acute distress and alert Orientation/consciousness: patient oriented x3 HENMT: Head: normocephalic and atraumatic Ears: hearing grossly normal bilaterally Face/Nose/Sinus: Normal nares present Mouth: Yes Normal oral and palatal mucosa present Eyes: Periorbital: periorbital findings normal Sclera: sclerae normal EOM: EOMs intact bilaterally Neck: Neck: normal visual inspection, no lymphadenopathy and trachea midline Chest: Chest palpation & inspection: normal inspection of the chest Resp: Effort & Inspection: normal respiratory effort Auscultation: clear to auscultation bilaterally Cardio: Jugular venous distension: no JVD Rate: regular rate Rhythm: regular rhythm Heart sounds: S1 normal heart sound present and S2 normal heart sound present Peripheral pulses: Peripheral pulses 2+ throughout GI: Inspection: normal to inspection GI Palp: Yes Soft to palpation, No Tenderness to palpation present (GI), No Guarding due to palpation present (GI) and No Rebound tenderness present Percussion: Yes normal to percussion Auscultation: normal bowel sounds : General: Yes no CVA tenderness Back/Spine/Pelvis: Back: no CVA tenderness Neuro: General: patient oriented x3, no focal motor deficits and CN's II-XI intact bilaterally Cognition (Neuro): normal cognition Speech: normal speech Motor exam (neuro): 5/5 motor strength present throughout Extrem: General: capillary refill normal and no clubbing, cyanosis or edema Assessment and Plan Assessment and plan (1) Screening for colorectal cancer: Code(s): Z12.11 - Encounter for screening for malignant neoplasm of colon; Z12.12 - Encounter for screening for malignant neoplasm of rectum Status: Acute Assessment and Plan: I have recommended colonoscopy. I have discussed the procedure, risks, benefits, and alternatives. Questions were answered. Patient is agreeable to proceed.
[2024-06-30 09:44] VITALS: BP 125/93; PULSE 70; RESP 19; O2SAT 94
[2024-06-30 09:54] VITALS: BP 114/57; PULSE 75; RESP 19; O2SAT 100
[2024-06-30 10:04] VITALS: BP 120/65; PULSE 69; RESP 20; O2SAT 100
== END 2024-06-30 10:14 | disposition home or self-care (01) ==
PROVIDERS: Anesthesiology; PCP Family Medicine; Visit Provider Surgery
PROC: 0DJD8ZZ Inspection of Lower Intestinal Tract, Via Natural or Artificial Opening Endoscopic (ICD-10-PCS; CPT 45378; principal; 2024-06-30 10:00)
DX: Z12.11 Encounter for screening for malignant neoplasm of colon (principal); Z87.891 Personal history of nicotine dependence
CPT/HCPCS: 45378; J2003; J2704; J7120

== ENCOUNTER 2025-04-25 07:19 | Outpatient (CLI) | payer BC, SELFPAY ==
--- NOTE | ~2025-04-25 | MM_ITS ---
EXAMINATION: MM screening [facility] w tank HISTORY: Screening TECHNIQUE: Craniocaudal and mediolateral oblique 3-D tomosynthesis images were obtained and synthetic 2-D images were generated. CAD analysis was submitted and interpreted. COMPARISON: 01/27/2023 BREAST PARENCHYMAL COMPOSITION: The breasts are extremely dense, which lowers the sensitivity of mammography. FINDINGS: There is no evidence of suspicious mass, calcification, or architectural distortion to suggest malignancy in either breast. There has been no significant interval change. IMPRESSION: 1. No mammographic evidence of malignancy. Recommend routine screening mammography in one year. BI-RADS Category 1: Negative Reviewed, dictated and finalized at location Q. IMPRESSION: 1. No mammographic evidence of malignancy. Recommend routine screening mammogra phy in one year. BI-RADS Category 1: Negative
== END 2025-04-25 07:20 | disposition home or self-care (01) ==
LOC: ANHFOHIMG 07:20
PROVIDERS: PCP Family Medicine; Visit Provider Obstetrics & Gynecology
DX: Z12.31 Encounter for screening mammogram for malignant neoplasm of breast (principal)
CPT/HCPCS: 77063; 77067